=== PATIENT | male | born 1960 | race Caucasian/White ===

== ENCOUNTER 2023-09-05 10:43 | Day surgery (SDC) | payer OTHER, SELFPAY ==
[2023-08-14 13:01] VITALS: BMI 29.6
--- NOTE | 2023-08-14 13:49 | PTCARENOTE ---
Dr. Higgins made aware of abnormal EKG- stated medical evaluation requested. Monica in Dr. Mckeon's office made aware.
[2023-09-05] VITALS (14 sets, daily range): BP systolic 121–165; BP diastolic 75–110; BMI 29.6
[2023-09-05] MEDS: TYLENOL 1000 MG PO (11:18)
[2023-09-05] MEDS: NORMOSOL-R 1000 IV (11:19)
[2023-09-05] MEDS: NICODERM TRANSDERMAL 7 MG TRANSDERM (12:49)
--- NOTE | 2023-09-05 13:19 | W.SUR.PREOP ---
Pre-Operative Surgical Note
-
I have examined this patient prior to the performance of the scheduled procedure.
The patient's condition is unchanged from the time of the current History and
Physical and the patient is able to undergo the scheduled procedure.
--- NOTE | 2023-09-05 15:20 | W.IMMPOSTOP ---
Surgical Immed Post Op Note
-
Primary Surgeon: Ernesto Mckeon MD
Assisting Surgeon: None
Pre-op Diagnosis: Left inguinal hernia, umbilical hernia
Post-op Diagnosis: Same
Procedure Performed:
1. Robotic left inguinal hernia repair with mesh.
2. Primary umbilical hernia repair
Anesthesia Type: General
Specimen / Cultures: None
Estimated Blood Loss: 3 cc
Complications: None
Operative Findings: Pantaloon hernia with a small indirect component and a medium size direct component. No femoral component. No cord lipoma though testicular packet was fairly fatty. Direct hernia sac imbricated to Brannon's ligament and floor
reinforced with a large left 3D max Bard mid weight mesh. 1 cm umbilical hernia closed with 0 PDS suture.
--- NOTE | 2023-09-05 15:22 | OR.RPT ---
Operative Report
Operative Report
Patient Name: Nahun Álvarez
: 1960
Date of Operation: 09/05/2023
Preoperative Diagnosis: Reducible left inguinal hernia, umbilical hernia
Postoperative Diagnosis: Same
Procedure(s):
1. Robotic left inguinal Hernia Repair with mesh, (CRISTY approach)
2. Primary umbilical hernia repair
Surgeon(s):
Dr. Mckeon
Bilingual Teacher Aide(s):
NINO Reyes
Anesthesia: General
Estimated Blood Loss: 3 cc
Urine Output: None
Drains/Lines/Implants: Large 3D Max Bard mid weight mesh
Specimens: None
Indication for surgery: The patient has a history of groin pain and noted on exam to have a Left inguinal Hernia as well as an umbilical hernia. Following review of therapeutic options they has elected to undergo a minimally invasive repair.
Operative Findings: No hernia noted on the right. Pantaloon hernia with a small left indirect component and a medium size direct component. No femoral component. No cord lipoma though testicular packet was fairly fatty. Direct hernia sac
imbricated to Brannon's ligament and floor reinforced with a large left 3D max Bard mid weight mesh. 1 cm umbilical hernia closed with 0 PDS suture.
Details of the operation:
The patient was brought to the Operating Room and placed in the supine position with the arms tucked. IV antibiotics were infused and Venodyne stockings placed. Following uneventful induction of general endotracheal anesthesia, an orogastric tube
were placed. The abdomen was prepped and draped in the usual sterile fashion. The abdomen was entered using a Veress technique which required 1 pass, pneumoperitoneum to 15 mmHg was obtained without difficulty. A 8mm trochar was passed through the
abdominal wall roughly 15 cm cephalad to the inguinal canal. We then confirmed that no inadvertent injury was made while passing the trocar or Veress needle. We then placed two additional 8 mm ports in the left upper and right upper quadrants. We
then docked the robot with a Prograsper in the left hand port and monopolar scissors in the right. No hernia was noted on the right, a left indirect inguinal hernia was noted with a sliding component of sigmoid colon to the peritoneum. We then
began by creating a flap at the level of the ASIS laterally working our way medially to the medial umbilical fold. Staying onto the peritoneum we were able to circumferentially dissect around the hernia sac and and peel it off of the underlying
spermatic cord and testicular vessels, taking care to preserve them. Medially we identified the midline pubis as well as Brannon's ligament and ensured to dissect 2 cm below the pubic rim over the bladder. Somewhat unexpectedly, there was a fairly
large direct inguinal hernia containing fat from over the bladder, and potentially from the bladder itself. There was a arambula mortise vessel which was identified and cauterized. After exposure of the entire myopectineal orifice we identified and
reduced: A small sized indirect inguinal hernia, medium to large direct inguinal hernia, no femoral hernia, and no cord lipoma. The testicular vessel packet was fairly fatty but no separate cord lipoma could be reduced.
We then fixated a large 3D max mesh with a 2-0 Vicryl stitch at coopers medially and superior laterally. The flap was then closed with a running 2-0 barbed monocryl suture ensuring that the tail was cut flush with the medial fat pad so that no
barbs were exposed. During the closure of the flap suction cannula was inserted and 20 cc of quarter percent Marcaine was instilled. The area in the flap cavity was then evacuated of air confirming that the mesh was flush and there were no folds.
A few small rents in the peritoneum was noted and closed with 2-0 Vicryl. All needles and instruments were then removed and the robot was undocked. The abdomen was then desufflated, and pneumoperitoneum evacuated. We then turned our attention to
the umbilical hernia. An infraumbilical incision was made and the umbilical hernia/stalk was encircled and the stalk was divided off of the underlying hernia sac. The defect measured roughly 1 cm and so was closed with 0 PDS suture. All skin
sites were then closed with 4-0 Monocryl followed by Dermabond. Counts were correct and overall, the patient tolerated the procedure well and was taken to the Recovery Room postoperatively in stable condition.
I was the attending physician and performed the procedure with assistance of the REGULATOR MECHANIC above. I was present for all portions of the case
Ernesto Mckeon MD
[2023-09-05] MEDS: SUBLIMAZE 50 MCG IV (16:08)
[2023-09-05] MEDS: SUBLIMAZE 25 MCG IV (16:34)
== END 2023-09-05 17:52 | disposition home or self-care (01) ==
LOC: SDS 10:43
PROVIDERS: ATTENDING PHYSICIAN Surgery; FAMILY PHYSICIAN Family Medicine
DX: K40.90 Unilateral inguinal hernia, without obstruction or gangrene, not specified as recurrent (principal); K42.9 Umbilical hernia without obstruction or gangrene
CPT/HCPCS: 49650; 49591; 36415; 87070; 93005; C1781

== ENCOUNTER → 2023-10-16 09:14 | Outpatient (REF) | payer OTHER, SELFPAY | LOC: HWRAD 09:14 | PROVIDERS: ATTENDING PHYSICIAN Surgery; FAMILY PHYSICIAN Family Medicine | DX: N50.812 Left testicular pain (principal) | CPT/HCPCS: 76870; 93976 ==

== ENCOUNTER → 2024-01-14 07:53 | Outpatient (REF) | payer OTHER, SELFPAY | LOC: HWRAD 07:53 | PROVIDERS: ATTENDING PHYSICIAN Physician Assistant Medical; FAMILY PHYSICIAN Family Medicine | DX: R22.32 Localized swelling, mass and lump, left upper limb (principal) | CPT/HCPCS: 76882 ==

== ENCOUNTER → 2024-02-11 10:04 | Outpatient (REF) | payer OTHER, SELFPAY | LOC: HWRAD 10:04 | PROVIDERS: ATTENDING PHYSICIAN Surgery; FAMILY PHYSICIAN Family Medicine | DX: R10.32 Left lower quadrant pain (principal); Z09 Encounter for follow-up examination after completed treatment for conditions other than malignant neoplasm | CPT/HCPCS: 72193; Q9967 ==